=== PATIENT | male | born 1935 | race Caucasian/White ===

== ENCOUNTER → 2016-11-11 | Outpatient (REF) | payer MEDICARE, OTHER | LOC: M LAB REF 10:03 | PROVIDERS: ATTEND Nurse Practitioner Family | DX: R19.7 Diarrhea, unspecified (principal) ==

== ENCOUNTER 2017-02-16 11:53 | Outpatient (CLI) | payer MEDICARE, BC, OTHER ==
[~2017-02-16] VITALS: Ht 177.8 cm; Wt 104.3 kg
[~2017-02-16 11:53] MED LIST: ASPI325T24 PO; CLON-412 PO; FINA5TAB2 PO; FLOM5CAP PO; FURO20TA2 PO; GABA600T PO; HUMI40KI2 SC; LIPI20TA PO; LR 1,000 ML IV SCH; NORV5TAB PO; PROAAER10 INH; SYMB16INH INH
[2017-02-16] MEDS ORDERED: PROPOFOL 200 MG/20 ML VIAL As Ordered ONE ×3 (13:51→14:12)
[2017-02-16] MEDS ORDERED: LIDOCAINE 2% INJ 100 MG/5 ML SDV (FOR ANES.) As Ordered ONE (13:51)
[2017-02-16 14:44] VITALS: BP 202/94
--- NOTE | 2017-02-16 15:07 | ROOR ---
Patient Name: Robb Montes Procedure Date: 02/16/2017 1:15 PM Date of : 1935 Age: 82 Room: [facility] Gender: Male Note Status: Finalized Procedure: Colonoscopy Indications: Clinically significant diarrhea of unexplained origin, Change in bowel habits Providers: Gage Goodman MD Referring MD: CASSANDRA VALVERDE NP Requesting Provider: Medicines: Monitored Anesthesia Care Complications: No immediate complications. Procedure: Pre-Anesthesia Assessment: - Prior to the procedure, a History and Physical was performed, and patient medications and allergies were reviewed. The patient is competent. The risks and benefits of the procedure and the sedation options and risks were discussed with the patient. All questions were answered and informed consent was obtained. Patient identification and proposed procedure were verified by the physician, the nurse and the anesthesiologist in the procedure room. Mental Status Examination: alert and oriented. Airway Examination: normal oropharyngeal airway and neck mobility. CV Examination: regular rate and rhythm. Prophylactic Antibiotics: The patient does not require prophylactic antibiotics. Prior Anticoagulants: The patient has taken no previous anticoagulant or antiplatelet agents. ASA Grade Assessment: III - A patient with severe systemic disease. After reviewing the risks and benefits, the patient was deemed in satisfactory condition to undergo the procedure. The anesthesia plan was to use monitored anesthesia care (MAC). Immediately prior to administration of medications, the patient was re-assessed for adequacy to receive sedatives. The heart rate, respiratory rate, oxygen saturations, blood pressure, adequacy of pulmonary ventilation, and response to care were monitored throughout the procedure. The physical status of the patient was re-assessed after the procedure. The Colonoscope was introduced through the anus and advanced to the cecum, identified by appendiceal orifice and ileocecal valve. The colonoscopy was performed without difficulty. The patient tolerated the procedure well. The quality of the bowel preparation was good. Findings: Many large-mouthed diverticula were found in the sigmoid colon. A 35 mm polyp was found in the proximal ascending colon. The polyp was sessile. This was biopsied with a hot snare for histology. Two sessile polyps were found in the descending colon. The polyps were diminutive in size. The perianal exam findings include non-thrombosed external hemorrhoids. Impression: - Diverticulosis in the sigmoid colon. - One 35 mm polyp in the proximal ascending colon. Biopsied. - Two diminutive polyps in the descending colon. - Non-thrombosed external hemorrhoids found on perianal exam. Recommendation: - Discharge patient to home. - Resume previous diet. - Continue present medications. - Await pathology results. - Return to endoscopist in 1 day. Gage Goodman MD 02/16/2017 3:06:50 PM Number of Addenda: 0 Note Initiated On: 02/16/2017 1:15 PM Estimated Blood Loss: Estimated blood loss was minimal.
== END 2017-02-16 14:50 | disposition home or self-care (01) ==
LOC: M OPP 11:53
PROVIDERS: ATTEND Surgery
DX: K57.30 Diverticulosis of large intestine without perforation or abscess without bleeding (principal); D12.2 Benign neoplasm of ascending colon; D12.4 Benign neoplasm of descending colon; K64.4 Residual hemorrhoidal skin tags; I10 Essential (primary) hypertension; E78.00 Pure hypercholesterolemia, unspecified; N40.0 Benign prostatic hyperplasia without lower urinary tract symptoms; J44.9 Chronic obstructive pulmonary disease, unspecified; E11.9 Type 2 diabetes mellitus without complications; Z79.82 Long term (current) use of aspirin; Z79.899 Other long term (current) drug therapy; Z79.4 Long term (current) use of insulin; Z87.891 Personal history of nicotine dependence

== ENCOUNTER → 2017-03-25 | Outpatient (CLI) | payer MEDICARE, BC, OTHER ==
[~2017-03-25] MED LIST changes: -LR 1,000 ML IV SCH
--- NOTE | 2017-03-25 15:26 | REP ---
Clinical: Drug monitoring . Comparison: 01/26/2012 . Technique: PA and lateral. Findings: The mediastinum and cardiac silhouette are normal. The lung emery are clear and without acute consolidation, effusion, or pneumothorax. The skeletal structures are intact and normal. Impression: 1. No acute cardiopulmonary process. Signed by Cristóbal Olivia MD 03/25/2017 03:18 P
== END ==
LOC: M WUC 14:42
PROVIDERS: ATTEND Nurse Practitioner Family
DX: L40.0 Psoriasis vulgaris (principal); Z79.899 Other long term (current) drug therapy; Z51.81 Encounter for therapeutic drug level monitoring

== ENCOUNTER 2017-04-06 10:02 | Inpatient (IN) | payer MEDICARE, BC, OTHER ==
--- NOTE | 2017-04-01 19:36 | CR ---
DATE OF CONSULTATION: 04/06/[address] Goodman for a laparoscopic right hemicolectomy scheduled for 04/06/2017. Dear Dr. Goodman thank you for asking me to see Mr. Robb Montes in consultation prior to his right hemicolectomy. As you know, Mr. Montes is an 82-year-old gentleman with a past medical history of hypertension, renal insufficiency, hyperlipidemia, psoriasis and asthma, presenting for preop optimization. The patient reports he has had cough. He uses his Symbicort one inhaled twice a day. He has just started using his ProAir today. He denies any fevers or chills. He frequently has cough and phlegm production. This is not out of the ordinary for him. The patient has known psoriasis maintained on Humira. His shot is usually 2 weeks but he has not had a shot for 3 weeks as it is being held prior to his surgery. The patient has known benign prostatic hypertrophy (BPH) on finasteride and tamsulosin with good results. The patient has hypertension but denies any chest pain, palpitations, syncope or pre-syncope. He is compliant with his amlodipine. The patient has diarrhea. This is what prompted a colonoscopy which showed a polyp which is being resected. The patient has prediabetes. Denies prior polyphagia polydipsia. Review of systems otherwise negative. PAST MEDICAL HISTORY: 1. Hypertensive CRI 3. 2. Hyperlipidemia. 3. Psoriasis. 4. Asthma, cough predominant 5. BPH. 6. Osteoarthritis. 7. Remote mastoid surgery. 8. Remote hiatal hernia surgery. 9. OA DJD with sciatica. 10. Prediabetes. 11. 10/19 positive nuclear stress test followed by essentially normal cardiac catheterization. Echo 10/31/02 normal. MEDICATIONS: - amlodipine 5 mg daily - atorvastatin 20 mg daily - clonidine 0.1 mg 2 tablets in the morning - finasteride 5mg daily - furosemide 20 mg daily - gabapentin 600 mg three times a day - Humira injection every 2 weeks - ProAir 2 puffs four times a day as needed - Symbicort 1-2 puffs twice a day - tamsulosin 0.4 mg DRUG ALLERGIES: MAGGIE inhibitors which cause renal failure. 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 . No children. Former light smoker one pack a week for 15 years. Drinks two alcohol beverages per day. PHYSICAL EXAMINATION: VITALS: An overweight male in no acute distress. Weight is 232, blood pressure 128/60, heart rate is 54 with an occasional irregular beat, O2 sat 92%. HEENT: Head is normocephalic. Neck is supple. Pupils equal, reactive to light. He does wear eyeglasses. External auditory canals, tympanic membranes essentially normal some cerumen. Posterior pharynx without inflammation. Neck is supple. No thyromegaly, JVD, carotid bruits. RESPIRATORY: Breath sounds are coarse but no expiratory wheezes. He has a wet cough. C CARDIOVASCULAR: Occasional irregular beat, soft systolic murmur left upper sternal border. ABDOMEN: Protuberant. He has an umbilical hernia. He has a large ventral hernia. DERMATOLOGIC: Multiple moles, seborrheic keratoses. Some OA changes of the DIP joint. NEUROLOGIC: Alert and oriented. Reflexes symmetric. LABORATORY DATA: EKG shows sinus bradycardia rate of 49, left axis deviation at - 56 degrees consistent with left anterior fascicular block, QRS 122, QT 408. Rhythm strip shows an occasional PVC. Overall EKG is unchanged from previous EKGs and stress testing. 04/01/2017, the patient had essentially normal CBC. On 03/23/2017, he had a normal AST, normal lipid panel. Med profile shows a GFR 58. He had a normal liver panel 11/09/2016. His last A1c was 03/12/2016 and was 6. IMPRESSION: Mr. Robb Montes is an 82-year-old gentleman with cardiovascular risk factors positive for advanced age, hypertension, hyperlipidemia, obesity, hyperglycemia, has no signs or symptoms indicative of cardiovascular ischemia and is felt to be optimized and at low risk for cardiovascular complications from the proposed surgical intervention which can be further minimized by the following. RECOMMENDATIONS: 1. Hypertension, take Norvasc and clonidine morning of surgery. Hold furosemide. 2. Hyperlipidemia, aspirin is already on hold. Take atorvastatin as usual the evening prior to surgery. 3. Asthma predominantly cough predominant. Increase Symbicort to 2 puffs twice a day, ProAir 2 puffs four times a day until surgery. Encourage deep breathing. He has no signs of active infection. 4. BPH. Hold tamsulosin and finasteride morning of surgery. 5. OA DJD. Approved the Tylenol perioperatively. 6. CRI 3. Renal dose meds as indicated 7. Prediabetes. Dietary intervention discussed. I am going to update an A1c. 9. Psoriasis. His Humira will be on hold at least 2 weeks before and after surgical intervention. Thank you very much for this consultation. Please call with questions or concerns.
[~2017-04-06] VITALS: Ht 177.8 cm; Wt 104.5 kg
[2017-04-06] VITALS (7 sets, daily range): BP systolic 150–170; BP diastolic 66–77
--- NOTE | 2017-04-06 00:14 | HPE ---
DATE OF ADMISSION: 04/06/2017 ADMITTING DIAGNOSIS: Non-endoscopically resectable adenoma of the proximal ascending colon. HISTORY OF PRESENT ILLNESS: The patient is a pleasant 82-year-old man who had undergone colonoscopy for a history of diarrhea. His most recent prior colonoscopy had been in 2002. His current study was done on 02/16/2017. At his recent colonoscopy. he was found to have significant diverticulosis of the sigmoid colon. There was also a large flat polyp identified in the proximal ascending colon just past the ileocecal fold. Biopsies were obtained which revealed fragments of tubulovillous adenoma. It was clear that the lesion was not endoscopically resectable. The patient and I had discussed options for followup, and he is now admitted to undergo a laparoscopic right hemicolectomy to eliminate the polyp. ALLERGIES: The patient has no known drug allergies. CURRENT MEDICATIONS: - tamsulosin 0.4 mg by mouth daily - Symbicort 160/4.5 mcg two puffs twice daily - ProAir inhaler two puffs four times daily as needed - atorvastatin 20 mg by mouth daily - amlodipine 5 mg by mouth daily - clonidine hydrochloride 0.1 mg tablets two every morning - Lasix 20 mg by mouth daily - finasteride 5 mg by mouth daily - gabapentin 600 mg by mouth three times a day - Humira 40 mg subcutaneously every 2 weeks - He has also been given Flagyl and neomycin and Suprep to take as his preoperative preparation. Medical history is significant for hyperlipidemia and hypertension. He has benign prostatic hyperplasia. He has a history of psoriasis. He does have environmental allergies. He has obesity. Surgical history is significant for a foot procedure. He has had a previous hiatal hernia repair. He has undergone a left mastoid procedure. He has had wrist surgery. 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 FAMILY HISTORY: The patient's father succumbed to lung cancer. He has a brother who has hypertension and a sister with hypertension as well. SOCIAL HISTORY: The patient is a former smoker who quit in 1969. He does drink one or two alcoholic beverages per day. REVIEW OF SYSTEMS: Reveals no chest pain or palpitations. He denies any shortness of breath, cough or wheezing. He denies any rectal bleeding. He has had no dysuria or hematuria. He is not having any significant bone or joint problems. His psoriasis is currently under good control with his Humira. He denies any history of seizure or stroke. He has no history of deep vein thrombosis (DVT) or pulmonary embolus. PHYSICAL EXAMINATION: Reveals a pleasant older man. His height is 69 inches with a weight of 106 kg giving him a body mass index (BMI) of approximately 35. Skin: Warm and dry. Sclerae are anicteric. Mucous membranes are moist. Neck is supple without mass or bruit. Heart: Exam shows a regular rate and rhythm. The lungs are clear to auscultation bilaterally. The abdomen is somewhat obese, soft, and nontender. He has some small scars consistent with previous laparoscopic abdominal surgery. The extremities are without edema. Digital rectal exam at his recent colonoscopy was normal. IMPRESSION: 1. 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 Hyperlipidemia. 3. Hypertension. 4. Benign prostatic hyperplasia. 5. Psoriasis. 6. Environmental allergies. 7. Obesity. PLAN: The patient is being admitted to undergo a laparoscopic right hemicolectomy to eliminate the large polyp identified on his recent colonoscopy. Patient is to have performed a full mechanical and antibiotic bowel preparation on 04/05/2017 using Suprep, neomycin, and Flagyl. He will receive a dose of Invanz preoperatively. He will also be started on Entereg preoperatively. A Galvan catheter will be placed during the procedure. Thromboembolism deterrents (TEDs) and sequentials will be used intraoperatively for deep vein thrombosis (DVT) prophylaxis. The patient has been counseled regarding the plan for surgery. He had an opportunity to ask questions. He was counseled regarding the risks of the procedure, which include but are not limited to bleeding, infection , scarring, adverse drug reaction, need for further surgery, injury of internal organ, anastomotic leak, and hernia formation. He desires to proceed with the surgery and is being admitted as planned for the surgery on the morning of 04/06/2017. FREDY
[2017-04-06] MEDS ORDERED: ERTAPENEM SODIUM 1 GM in NS MINI-BAG PLUS 50 ML IV ONE (10:15)
[2017-04-06] MEDS ORDERED: LIDOCAINE 1% MDV 20ML VIAL SQ ONE (10:15)
[2017-04-06] MEDS ORDERED: LR 1,000 ML IV ONE (10:15)
[2017-04-06] MEDS ORDERED: ALVIMOPAN 12 MG CAPSULE (ENTEREG) PO ONE (10:15)
[2017-04-06 11:13] LABS: ANION GAP 8 MEQ/L (8-16); BLOOD UREA NITROGEN 19 MG/DL (7-18); CALCIUM LEVEL 8.6 MG/DL (8.8-10.2); CARBON DIOXIDE LEVEL 27 MEQ/L (21-32); CHLORIDE LEVEL 107 MEQ/L (98-107); CREATININE FOR GFR 1.21 MG/DL (0.70-1.30); GLOMERULAR FILTRATION RATE > 60.0 (>35); GLUCOSE, FASTING 96 MG/DL (83-110); POTASSIUM SERUM 4.1 MEQ/L (3.5-5.1); SODIUM LEVEL 142 MEQ/L (136-145)
[2017-04-06] MEDS ORDERED: fentaNYL 100 MCG/2 ML INJECTION (J3010) As Ordered ONE (11:50)
[2017-04-06] MEDS ORDERED: MIDAZOLAM INJ 2 MG/2 ML VIAL (J2250) As Ordered ONE (11:50)
[2017-04-06] MEDS ORDERED: BUPIVACAINE HCL 0.25% 30 ML VIAL As Ordered ONE (12:55)
[2017-04-06] MEDS ORDERED: PROPOFOL 200 MG/20 ML VIAL As Ordered ONE (13:45)
[2017-04-06] MEDS ORDERED: ePHEDrine SULFATE 25 MG/5 ML(5MG/ML) SYRINGE As Ordered ONE (13:45)
[2017-04-06] MEDS ORDERED: LIDOCAINE 2% INJ 100 MG/5 ML SDV (FOR ANES.) As Ordered ONE (13:45)
[2017-04-06] MEDS ORDERED: ROCURONIUM BROMIDE 50 MG/5 ML VIAL/SYRINGE As Ordered ONE ×2 (13:45→14:28)
[2017-04-06] MEDS ORDERED: NEOSTIGMINE 1MG/ML 5 ML SYRINGE (J2710) As Ordered ONE (13:45)
[2017-04-06] MEDS ORDERED: dexameTHASONE 4 MG/ML 1ML VIAL (J1100) As Ordered ONE (13:45)
[2017-04-06] MEDS ORDERED: GLYCOPYRROLATE INJ 0.2 MG/ML 2 ML VIAL As Ordered ONE (13:45)
[2017-04-06] MEDS ORDERED: KETOROLAC 60 MG/2 ML VIAL (J1885) As Ordered ONE (13:46)
[2017-04-06] MEDS ORDERED: ONDANSETRON 4MG/2ML VIAL (J2405) As Ordered ONE (13:46)
[2017-04-06] MEDS ORDERED: HYDROmorphone HCL 2 MG/ML 1ML VIAL (J1170) As Ordered ONE (13:51)
[2017-04-06] MEDS ORDERED: hydrALAZINE INJ 20 MG/ML VIAL As Ordered ONE (14:02)
[2017-04-06] MEDS ORDERED: ALBUTEROL 90 MCG/ACT 8GM HFA INHALER INH PRN (16:45)
[2017-04-06] MEDS ORDERED: ACETAMINOPHEN TAB 650MG DOSE (2X325MG) PO PRN (16:45)
[2017-04-06] MEDS ORDERED: MORPHINE 2 MG/ML 1ML SYRINGE IV PRN (16:45)
[2017-04-06] MEDS ORDERED: KETOROLAC 30 MG/ML VIAL (J1885) IV PRN (16:45)
[2017-04-06] MEDS ORDERED: METOCLOPRAMIDE INJ 10MG/2ML VIAL (J2765) IV PRN ×2 (16:45→17:00)
[2017-04-06] MEDS ORDERED: MEPERIDINE INJ 25 MG/ML VIAL (J2175) IV PRN (17:00)
[2017-04-06] MEDS ORDERED: ONDANSETRON 4MG/2ML VIAL (J2405) IV PRN (17:00)
[2017-04-06] MEDS ORDERED: PERCOCET 5MG/325MG TAB PO PRN (17:00)
[2017-04-06] MEDS ORDERED: fentaNYL 100 MCG/2 ML INJECTION (J3010) IV PRN (17:00)
[2017-04-06] MEDS ORDERED: LR 1,000 ML IV SCH (17:00)
[2017-04-06] MEDS: LR 1,000 ML IV SCH (20:01)
[2017-04-06] MEDS: ALVIMOPAN 12 MG CAPSULE (ENTEREG) PO SCH (20:26)
[2017-04-06] MEDS: ATORVASTATIN 20 MG TAB PO SCH (20:26)
[2017-04-06] MEDS: GABAPENTIN 300 MG CAP PO SCH (20:26)
[2017-04-06] MEDS: SYMBICORT 160/4.5MCG INHALER 6GM INH SCH (21:00)
[2017-04-06] MEDS: ENOXAPARIN 40 MG/0.4 ML SYRINGE (J1650) SC SCH (22:46)
[2017-04-07] VITALS (8 sets, daily range): BP systolic 138–169; BP diastolic 62–80
[2017-04-07] MEDS: NORCO, ANEXSIA 5/325MG TABLET (HYDROcodone/ACETAMINOPHEN) PO PRN ×2 (01:35→21:39)
[2017-04-07] MEDS: LR 1,000 ML IV SCH (02:39)
[2017-04-07 06:54] LABS: BASO % 0.1 % (0.0-1.0); EOS % 0.5 % (0.0-3.0); LARGE UNSTAINED CELL # 0.2 K/mm3 (0.0-0.4); LARGE UNSTAINED CELL % 1.8 % (0.0-4.0); LYMPH # 1.7 K/mm3 (1.5-4.5); LYMPH % 20.5 % (24.0-44.0); MEAN CORPUSCULAR HEMOGLOBIN 32.3 pg (27.0-33.0); MEAN CORPUSCULAR HGB CONC 34.5 g/dl (32.0-36.5); MEAN CORPUSCULAR VOLUME 93.5 fl (80.0-96.0); MONO # 0.8 K/mm3 (0.0-0.8); NEUTROPHILS # 5.4 K/mm3 (1.8-7.7); PLATELET COUNT, AUTOMATED 182 k/mm3 (150-450); RED CELL DISTRIBUTION WIDTH 12.2 % (11.5-14.5)
[2017-04-07 07:16] LABS: ANION GAP 5 MEQ/L (8-16); BLOOD UREA NITROGEN 23 MG/DL (7-18); CALCIUM LEVEL 7.9 MG/DL (8.8-10.2); CARBON DIOXIDE LEVEL 28 MEQ/L (21-32); CHLORIDE LEVEL 107 MEQ/L (98-107); CREATININE FOR GFR 1.09 MG/DL (0.70-1.30); GLOMERULAR FILTRATION RATE > 60.0 (>35); GLUCOSE, FASTING 135 MG/DL (83-110); POTASSIUM SERUM 3.8 MEQ/L (3.5-5.1); SODIUM LEVEL 140 MEQ/L (136-145)
--- NOTE | 2017-04-07 08:31 | IPN ---
DATE: 04/07/2017 The patient is now postop day #1 from a laparoscopic right hemicolectomy for a non endoscopically resectable proximal ascending colon polyp. He is sitting up in a chair this morning taking some clear liquids. He denies any nausea or vomiting. He has some pain at his midline incision with coughing and has taken to splinting appropriately. He has had no bowel movement or flatus yet. Vital signs this morning show a temperature of 98.4, pulse 65, respirations 18 and blood pressure of 139/65. He has a urine output of 250 mL recorded overnight. PHYSICAL EXAMINATION: The patient is alert, oriented and appears comfortable. Sclerae are anicteric. Skin is warm and dry. Heart: Exam shows a regular rate and rhythm. The lungs are clear. The abdomen is somewhat protuberant but soft. His bandages are dry and intact. Laboratory studies: He had a CBC this morning showing a white count of 8, hemoglobin 13, hematocrit of 38 with a differential showing 67% neutrophils, 20% lymphocytes and 10 monocytes. Chemistry profile shows normal electrolytes, BUN of 23 with a creatinine 1.09 and a glucose of 135. IMPRESSION: The patient is doing very well following his laparoscopic right hemicolectomy. He is tolerating clear liquids with no nausea or vomiting. PLAN: The patient will be advanced to a regular diet. His IV will be saline locked as he appears to have taken adequate oral intake. He has two IVs and I will ask that one of these be removed. He is encouraged to be up ambulating in the hallway and advised that he should anticipate that his first bowel movements will be perhaps somewhat unpredictable and loose and he should be prepared. Hopefully, he will be ready for discharge within the next 2 or 3 days. FREDY
[2017-04-07] MEDS: FINASTERIDE 5 MG TAB PO SCH (09:03)
[2017-04-07] MEDS: TAMSULOSIN 0.4 MG CAP PO SCH (09:03)
[2017-04-07] MEDS: GABAPENTIN 300 MG CAP PO SCH ×3 (09:04→21:33)
[2017-04-07] MEDS: ALVIMOPAN 12 MG CAPSULE (ENTEREG) PO SCH ×2 (09:04→21:33)
[2017-04-07] MEDS: amLODIPine 5 MG TAB PO SCH (09:04)
[2017-04-07] MEDS: cloNIDine 0.2 MG TAB PO SCH (09:05)
[2017-04-07] MEDS: FUROSEMIDE 20 MG TAB PO SCH (09:05)
[2017-04-07] MEDS: SYMBICORT 160/4.5MCG INHALER 6GM INH SCH ×2 (11:47→20:21)
[2017-04-07] MEDS: ATORVASTATIN 20 MG TAB PO SCH (21:33)
[2017-04-07] MEDS: ENOXAPARIN 40 MG/0.4 ML SYRINGE (J1650) SC SCH (22:52)
[2017-04-08] VITALS (7 sets, daily range): BP systolic 128–164; BP diastolic 60–76
[2017-04-08] MEDS: SYMBICORT 160/4.5MCG INHALER 6GM INH SCH ×2 (07:41→20:11)
--- NOTE | 2017-04-08 08:51 | RO ---
DATE OF PROCEDURE: 04/06/2017 PREOPERATIVE DIAGNOSIS: Non-endoscopically resectable right colon polyp. POSTOPERATIVE DIAGNOSIS: Non-endoscopically resectable right colon polyp (polyp of proximal ascending colon), umbilical hernia, adhesions. PROCEDURE PERFORMED: Laparoscopic right hemicolectomy with anastomosis, repair of umbilical hernia, and lysis of adhesions. SURGEON: Dr. Gage Goodman SONG AND DANCE PERFORMER: Dr. March ANESTHESIA: General. INDICATIONS FOR THE PROCEDURE: The patient is an 82-year-old man who recently underwent a colonoscopy because of a history of several months of diarrhea. He was found to have a large sessile polyp of the proximal ascending colon. Biopsies were obtained which revealed tubulovillous adenoma. He is now for a right hemicolectomy. OPERATIVE PROCEDURE: The patient was placed supine on the operating table. He was placed under general endotracheal anesthesia. A Galvan catheter was inserted. Thromboembolic deterrents (TEDS) and sequentials were utilized. The patient's abdomen was prepped and draped in a sterile fashion. 0.25% Marcaine was infiltrated above the umbilicus and a short midline incision was made just above the umbilicus. He was noted to have a small umbilical hernia. This was deepened through the fascia and the peritoneum was opened bluntly. A Banegas cannula was inserted and the abdomen was inflated with carbon dioxide gas. The laparoscope was placed. Initial examination showed a small grouping of adhesions of the omentum to the anterior abdominal wall just to the left of the falciform ligament. He did have a fairly lax abdominal wall particularly along the midline in the upper abdomen where he had an old scar from a prior hiatal hernia repair. The patient was tilted to a Trendelenburg position and rolled slightly to the left. The cecum was identified. A 5 mm trocar was placed low in the abdomen just to the right of the midline. A second 5 mm trocar was placed in the left lower quadrant. Graspers were inserted. The adhesions of the omentum in the left upper quadrant were lysed using the harmonic scalpel. The terminal ileum was identified. The cecum was grasped and retracted medially. The lateral attachments of the ascending colon were then divided using the harmonic scalpel extending from the area of the cecum all the way up along the ascending colon to the right upper quadrant. The greater omentum was elevated off of the transverse colon beginning at about the mid transverse colon and working to the right. In this manner, the transverse colon was better identified. The attachments of the hepatic flexure in the subhepatic space were divided and the hepatic flexure was mobilized inferiorly. I selected a point for division of the transverse colon near the midline. An opening was created through the transverse mesocolon and the colon was stapled with a load of the echelon stapler. The mesentery was divided down to its base. Likewise, the terminal ileum was freed from some attachments laterally and then, after creating an opening through the ileal mesentery, transected using a load of the echelon stapler. Again, the mesentery was divided down to its base. The ascending colon was mobilized further medially. The opening in the terminal ileal mesentery was then carried distally to divide the right colon mesentery near its base. The ileocolic artery was identified with the accompanying vein and these were divided using the harmonic scalpel without difficulty. The dissection continued distally along the ascending colon. The final attachments of the transverse colon in the right upper quadrant were divided, freeing the specimen entirely. Several additional attachments of the terminal ileum were divided to ensure that this would mobilize to the midline. Likewise, some additional attachments between the distal transverse colon and the overlying omentum were divided. The terminal ileum and the end of the transverse colon were then grasped with clamps and the specimen was grasped with a third grasper. In the course of dissection, a fourth grasper had been placed in the left upper quadrant. This was a 5 mm trocar. The abdomen was then deflated and the Banegas cannula was removed. This incision was extended inferiorly into a small umbilical hernia that was noted creating an incision approximately 5 cm in length. A Mobius retractor was inserted. The specimen was delivered through the wound and comprised an approximately 40 cm length of colon with attached mesentery. This was set aside for later inspection. The end of the terminal ileum and the transverse colon were then brought through the Mobius retractor. A stapled anastomosis was performed using a load of the echelon stapler to create a [id number] anastomosis with the residual opening closed with another firing of the echelon stapler. Inspection revealed an excellent anastomosis with no evidence of leak. The anastomosis was irrigated and then reduced into the abdomen. The Mobius retractor was removed. The surgical team all changed gown and gloves and then using the sterile closing tray proceeded. The peritoneum was closed in the midline incision with a running suture of #0 chromic. The fascia was then closed with interrupted simple sutures of #1 Vicryl. The abdomen was then reinflated. A 5 mm scope was inserted. The anastomosis was identified and there was no evidence of bleeding. A small amount of old blood in the right paracolic gutter area was irrigated and suctioned from the abdomen. The liver appeared normal. Other visualized loops of the small bowel appeared normal. The patient was returned to a flat position. The abdomen was deflated through the remaining three trocars and these were then removed. The skin incisions were all closed with buried Vicryl sutures and Steri-Strips. Light dressings were applied. The patient's Galvan catheter was removed. The specimen was opened longitudinally revealing an approximately 3.5cm flat polyp just distal to the ileocecal fold. He was awakened in the operating room, extubated and moved to the recovery room in stable condition. FREDY
[2017-04-08] MEDS: ALVIMOPAN 12 MG CAPSULE (ENTEREG) PO SCH ×2 (09:54→20:49)
[2017-04-08] MEDS: GABAPENTIN 300 MG CAP PO SCH ×3 (09:54→20:49)
[2017-04-08] MEDS: TAMSULOSIN 0.4 MG CAP PO SCH (09:55)
[2017-04-08] MEDS: FUROSEMIDE 20 MG TAB PO SCH (09:55)
[2017-04-08] MEDS: amLODIPine 5 MG TAB PO SCH (09:56)
[2017-04-08] MEDS: cloNIDine 0.2 MG TAB PO SCH (09:57)
[2017-04-08] MEDS: FINASTERIDE 5 MG TAB PO SCH (09:57)
--- NOTE | 2017-04-08 17:12 | IPN ---
DATE: 04/08/2017 The patient is now postoperative day 2 from his right hemicolectomy for a non-endoscopically resectable polyp. His pathology report shows tubulovillous adenoma with no high-grade dysplasia. There were two additional small tubular adenomas identified. The patient has been up in a chair and ambulatory. He is tolerating a regular diet and has begun having bowel function. Vital signs today show a temperature of 97.8, pulse of 62, respirations of 18, and a blood pressure of 128/60. Intake and output shows an intake of 1920 so far today with a urine output of almost 2900. He has had two bowel movements today. PHYSICAL EXAMINATION: The patient is alert, oriented, and cooperative. He is sitting comfortably in a chair. He is breathing easily. Heart exam shows a regular rate and rhythm. The lungs are clear. The abdomen is quite protuberant. He has some bruising around his trocar site in the left lower quadrant. His incisions are clean and dry. He has bowel sounds present. There are no laboratory studies or imaging studies obtained today. IMPRESSION: Excellent postoperative result to date with tolerance of regular diet and onset of bowel movements. PLAN: The patient will be discharged tomorrow if there are no problems between now and then. He can take a shower now, and we will remove his remaining saline lock. FREDY
[2017-04-08] MEDS: ATORVASTATIN 20 MG TAB PO SCH (20:49)
[2017-04-08] MEDS: ENOXAPARIN 40 MG/0.4 ML SYRINGE (J1650) SC SCH (23:44)
[2017-04-09 06:00] VITALS: BP 162/98
[2017-04-09] MEDS: TAMSULOSIN 0.4 MG CAP PO SCH (09:15)
[2017-04-09] MEDS: amLODIPine 5 MG TAB PO SCH (09:15)
[2017-04-09] MEDS: GABAPENTIN 300 MG CAP PO SCH (09:15)
[2017-04-09] MEDS: ALVIMOPAN 12 MG CAPSULE (ENTEREG) PO SCH (09:15)
[2017-04-09] MEDS: FINASTERIDE 5 MG TAB PO SCH (09:15)
[2017-04-09] MEDS: FUROSEMIDE 20 MG TAB PO SCH (09:16)
[2017-04-09] MEDS: cloNIDine 0.2 MG TAB PO SCH (09:16)
--- NOTE | 2017-04-09 09:53 | IPN ---
DATE: 04/08/2017 The patient is now three days postop from his laparoscopic right hemicolectomy for a large tubulovillous adenoma of the proximal ascending colon. His final pathology confirms a benign polyp with two additional small adenomas identified. He is doing well tolerating a diet and having bowel movements that are still loose. VITAL SIGNS: The patient has been afebrile for the last 24 hours. Vitals this morning show a temperature of 98.2, pulse 64, respirations 16, blood pressure 162/98 and his room air pulse oximetry is 95%. INTAKE AND OUTPUT: Yesterday was 2300 in and 3600 out. He has 2 bowel movements already recorded today. PHYSICAL EXAMINATION: The patient is up in a chair, dressed and appearing comfortable. Sclerae are anicteric. Heart exam shows a regular rhythm. The lungs are clear. His abdomen is protuberant, but soft and nontender with active bowel sounds. He has no laboratory studies. IMPRESSION: Doing well three days postop from his laparoscopic right hemicolectomy. PLAN: The patient will be discharged home. He has not used any pain medications in greater than 36 hours, so a pain med prescription will not be provided. He will continue his usual medications as before admission, though he will hold his Humira for two weeks after surgery. I advised him that there is a small risk of problems that could occur still in the next few days to a week and he is to contact the office for any fevers or chills, increasing abdominal pain or signs of a wound infection. He should followup with me routinely in 10-14 days. He can take a diet as tolerated and shower ad jero. FREDY
[2017-04-09 10:00] VITALS: BP 132/63
--- NOTE | 2017-04-09 12:47 | DSES ---
DATE OF ADMISSION: 04/06/2017 DATE OF DISCHARGE: 04/09/2017 ADMITTING DIAGNOSIS: Non endoscopically resectable proximal ascending colon polyp. HISTORY OF PRESENT ILLNESS: The patient is an 82-year-old man who had a recent colonoscopy that showed a roughly 3-4 cm polyp in his proximal ascending colon just distal to the ileocecal fold. This was flat and not amendable to an endoscopic resection. The patient is now admitted to undergo a right hemicolectomy. HOSPITAL COURSE: The patient was admitted on the morning of the after completing a full mechanical and antibiotic bowel preparation at home using SUPREP, neomycin, and Flagyl. He was taken to the operating room where he underwent an uncomplicated laparoscopic right hemicolectomy with repair of a small umbilical hernia and takedown of some adhesions. His postoperative course was unremarkable and he is now discharged on 04/09/2017. Final pathology confirmed a large tubulovillous adenoma with no dysplasia and there were also two additional small adenomas identified in the specimen. FINAL DIAGNOSES: 1. 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 Hyperlipidemia. 3. Hypertension. 4. Benign prostatic hyperplasia. 5. Psoriasis. 6. Environmental allergies. 7. Umbilical hernia. 8. Obesity. PROCEDURES PERFORMED: 1. Laparoscopic right hemicolectomy. 2. Umbilical herniorrhaphy. 3. Lysis of adhesions. DISPOSITION: The patient is discharged home on 04/09/2017. He is taking no analgesics so no pain medicine prescriptions will be provided. He will continue his usual pre-admission medications, though he will continue to hold his Humira for another 2 weeks before his next dose. He is taking a regular diet. His wounds are healing well and he can shower as desired. He can take a quick bath if desired as well. He was advised to avoid any lifting greater than 25-30 pounds or any strenuous activity. He should follow up with me in my office in 10-14 days. He was counseled to contact the office sooner if he noted fevers, chills or increasing abdominal pain. FREDY
== END 2017-04-09 11:24 | disposition home or self-care (01) | DRG 331 ==
LOC: M OR 10:02 → M MSPAV 17:22
PROVIDERS: ADMIT Surgery; ATTEND Surgery
PROC: 0DBK4ZZ Excision of Ascending Colon, Percutaneous Endoscopic Approach (ICD-10-PCS; principal; 2017-04-06 11:30)
DX: D12.2 Benign neoplasm of ascending colon (principal); I12.9 Hypertensive chronic kidney disease with stage 1 through stage 4 chronic kidney disease, or unspecified chronic kidney disease; E78.5 Hyperlipidemia, unspecified; J45.909 Unspecified asthma, uncomplicated; N18.3 Chronic kidney disease, stage 3 (moderate); N40.0 Benign prostatic hyperplasia without lower urinary tract symptoms; R73.03 Prediabetes; L40.9 Psoriasis, unspecified; Z79.899 Other long term (current) drug therapy; Z88.8 Allergy status to other drugs, medicaments and biological substances; Z87.891 Personal history of nicotine dependence

== ENCOUNTER → 2017-09-23 | Outpatient (REF) | payer MEDICARE, BC, OTHER ==
[2017-09-23 19:08] LABS: PHOSPHORUS LEVEL 3.6 MG/DL (2.5-4.9)
[2017-09-25 15:11] LABS: QUANTIFERON GOLD TB Negative (Negative); TB Test (QFT) Antigen 0.05 IU/mL (.); TB Test (QFT) Antigen Minus Ni <0.01 IU/mL (.); TB Test (QFT) Mitogen >10.00 IU/mL (.); TB Test (QFT) Nil 0.06 IU/mL (.)
== END ==
LOC: M LAB REF 17:15
DX: L40.0 Psoriasis vulgaris (principal); Z79.899 Other long term (current) drug therapy; Z51.81 Encounter for therapeutic drug level monitoring
CPT/HCPCS: 84100

== ENCOUNTER → 2017-11-04 | Outpatient (REF) | payer MEDICARE, BC, OTHER | LOC: M LAB REF 11:55 | DX: J02.9 Acute pharyngitis, unspecified (principal) | CPT/HCPCS: 87070 ==

== ENCOUNTER → 2017-11-16 | Outpatient (CLI) | payer MEDICARE, BC, OTHER | LOC: M WUC 11:01 | DX: L40.0 Psoriasis vulgaris (principal); Z51.81 Encounter for therapeutic drug level monitoring; Z79.899 Other long term (current) drug therapy | CPT/HCPCS: 71046 ==

== ENCOUNTER → 2018-03-28 | Outpatient (REF) | payer MEDICARE, BC, OTHER | LOC: M LAB REF 17:02 | DX: B37.0 Candidal stomatitis (principal) | CPT/HCPCS: 87070 ==

== ENCOUNTER → 2018-12-20 | Outpatient (CLI) | payer MEDICARE, BC, OTHER ==
[~2018-12-20] MED LIST changes: +ASPI-255 PO; -ASPI325T24 PO; +FLOM0.4C39 PO; -FLOM5CAP PO; -GABA600T PO; +GABA600T4 PO
--- NOTE | 2018-12-20 15:58 | REP ---
Chest two views HISTORY: Medication monitoring Comparison: 08/25/2018 Calcified granuloma are present in the upper lobes. The heart is normal in size. The pulmonary vasculature is normal in appearance. Degenerative change is present in the thoracic spine. IMPRESSION: No acute disease. Electronically Signed by Brock Felix MD 12/20/2018 03:49 P
== END ==
LOC: M LAB 13:12
PROVIDERS: ATTEND Nurse Practitioner Family
DX: R91.8 Other nonspecific abnormal finding of lung field (principal); M51.34 Other intervertebral disc degeneration, thoracic region; L40.0 Psoriasis vulgaris; Z51.81 Encounter for therapeutic drug level monitoring; Z79.899 Other long term (current) drug therapy

== ENCOUNTER 2019-01-17 09:10 | Day surgery (SDC) | payer MEDICARE, BC, OTHER ==
[~2019-01-17] VITALS: Ht 175.3 cm; Wt 83.5 kg
[~2019-01-17 09:10] MED LIST changes: +LISI-542 PO; +NS 1,000 ML IV ONE; +PROPOFOL 200 MG/20 ML VIAL As Ordered ONE; +TOPR50TA; +XARE20TA
[2019-01-17 12:04] VITALS: BP 129/89
--- NOTE | 2019-01-17 12:18 | ROOR ---
Patient Name: Robb Montes Procedure Date: 01/17/2019 10:47 AM Date of : 1935 Age: 84 Room: [facility] Gender: Male Note Status: Finalized Procedure: Colonoscopy Indications: Heme positive stool Providers: Gage Goodman MD Referring MD: Alexandra BOYLE MD Requesting Provider: Medicines: Monitored Anesthesia Care Complications: No immediate complications. Estimated blood loss: None. Procedure: Pre-Anesthesia Assessment: - Prior to the procedure, a History and Physical was performed, and patient medications and allergies were reviewed. The patient is competent. The risks and benefits of the procedure and the sedation options and risks were discussed with the patient. All questions were answered and informed consent was obtained. Patient identification and proposed procedure were verified by the physician, the nurse and the anesthesiologist in the procedure room. Mental Status Examination: alert and oriented. CV Examination: regular rate and rhythm. Prophylactic Antibiotics: The patient does not require prophylactic antibiotics. Prior Anticoagulants: The patient has taken no previous anticoagulant or antiplatelet agents. ASA Grade Assessment: II - A patient with mild systemic disease. After reviewing the risks and benefits, the patient was deemed in satisfactory condition to undergo the procedure. The anesthesia plan was to use monitored anesthesia care (MAC). Immediately prior to administration of medications, the patient was re-assessed for adequacy to receive sedatives. The heart rate, respiratory rate, oxygen saturations, blood pressure, adequacy of pulmonary ventilation, and response to care were monitored throughout the procedure. The physical status of the patient was re-assessed after the procedure. The Colonoscope was introduced through the anus and advanced to the ileocolonic anastomosis. The colonoscopy was performed without difficulty. The patient tolerated the procedure well. The quality of the bowel preparation was good. Findings: The perianal and digital rectal examinations were normal. Multiple medium-mouthed diverticula were found in the sigmoid colon. There was evidence of a prior functional end-to-end ileo-colonic anastomosis in the proximal transverse colon. This was patent and was characterized by healthy appearing mucosa. The anastomosis was not traversed. A 6 mm polyp was found in the transverse colon. The polyp was sessile. The polyp was removed with a hot snare. Resection and retrieval were complete. Two sessile polyps were found in the descending colon and transverse colon. The polyps were 3 to 4 mm in size. These were biopsied with a hot forceps for histology. Impression: - Diverticulosis in the sigmoid colon. - Patent functional end-to-end ileo-colonic anastomosis, characterized by healthy appearing mucosa. - One 6 mm polyp in the transverse colon, removed with a hot snare. Resected and retrieved. - Two 3 to 4 mm polyps in the descending colon and in the transverse colon. Biopsied. Recommendation: - Discharge patient to home. - Resume previous diet. - Continue present medications. - Await pathology results. Gage Goodman MD Gage Goodman MD 01/17/2019 12:17:45 PM Electronically signed by Gage Goodman MD Number of Addenda: 0 Note Initiated On: 01/17/2019 10:47 AM Estimated Blood Loss: Estimated blood loss: none.
== END 2019-01-17 12:05 | disposition home or self-care (01) ==
LOC: M OPP 09:10
PROVIDERS: ATTEND Surgery
DX: D12.3 Benign neoplasm of transverse colon (principal); D12.4 Benign neoplasm of descending colon; K57.30 Diverticulosis of large intestine without perforation or abscess without bleeding; R19.5 Other fecal abnormalities; Z98.0 Intestinal bypass and anastomosis status

== ENCOUNTER → 2019-03-24 | Outpatient (REF) | payer MEDICARE, BC, OTHER ==
[~2019-03-24] MED LIST changes: -NS 1,000 ML IV ONE; -PROPOFOL 200 MG/20 ML VIAL As Ordered ONE
== END ==
LOC: M LAB REF 12:53
PROVIDERS: ATTEND Internal Medicine
DX: L40.0 Psoriasis vulgaris (principal); Z79.899 Other long term (current) drug therapy; Z51.81 Encounter for therapeutic drug level monitoring

== ENCOUNTER → 2019-03-29 | Outpatient (REF) | payer MEDICARE, OTHER ==
[2019-03-29 18:07] LABS: BACTERIA, URINE AUTO NEGATIVE (NEGATIVE); CALCIUM OXALATE CRYSTALS SMALL; RBC, URINE AUTO TNTC /HPF (0-3); SQUAMOUS EPITHELIAL CELL UR AU 0 /HPF (0-6); WBC, URINE AUTO 2 /HPF (0-3)
== END ==
LOC: M LAB REF 17:23
PROVIDERS: ATTEND Internal Medicine
DX: R31.9 Hematuria, unspecified (principal)

== ENCOUNTER → 2019-04-12 | Outpatient (REF) | payer MEDICARE, OTHER ==
[~2019-04-12] MED LIST changes: -TOPR50TA; +TOPR50TA PO; -XARE20TA; +XARE20TA PO
[2019-04-12 19:25] LABS: APPEARANCE, URINE CLEAR (CLEAR); BACTERIA, URINE AUTO NEGATIVE (NEGATIVE); BILIRUBIN, URINE AUTO NEGATIVE (NEGATIVE); BLOOD, URINE BLOOD 2+ (NEGATIVE); COLOR, URINE STRAW (YELLOW); GLUCOSE, URINE (UA) AUTO NEGATIVE (NEGATIVE); KETONE, URINE AUTO NEGATIVE (NEGATIVE); LEUKOCYTE ESTERASE, URINE AUTO NEGATIVE (NEGATIVE); MUCUS, URINE SMALL (NEGATIVE); NITRITE, URINE AUTO NEGATIVE (NEGATIVE); PROTEIN, URINE AUTO NEGATIVE (NEGATIVE); RBC, URINE AUTO 29 /HPF (0-3); SQUAMOUS EPITHELIAL CELL UR AU 0 /HPF (0-6); UROBILINOGEN, URINE AUTO 0.2 mg/dL (0.0-2.0); WBC, URINE AUTO 2 /HPF (0-3)
== END ==
LOC: M SMT 18:57
PROVIDERS: ATTEND Nurse Practitioner Women's Health
DX: R31.29 Other microscopic hematuria (principal)
CPT/HCPCS: 81001; 87086; 88108; G0463

== ENCOUNTER 2019-04-20 11:45 | Day surgery (SDC) | payer MEDICARE, BC, OTHER ==
[~2019-04-20] VITALS: Ht 175.3 cm; Wt 86.1 kg
[~2019-04-20 11:45] MED LIST changes: +BALANCED SALT IRRIGATION SOLUTION 500ML BAG (FOR OR EYE MACHINE) As Ordered ONE; +DUOVISC (0.50ML VISCOAT/0.55ML PROVISC) OPHTH KIT As Ordered ONE; +LIDOCAINE 0.75%/EPINEPHRINE 0.025% IN BSS 0.8ML SYR INTRACAMERAL--OR ONLY As Ordered ONE; +MIDAZOLAM INJ 2 MG/2 ML VIAL (J2250) As Ordered ONE; +OFLOXACIN 0.3 % (OCUFLOX) OPTH SOL 5ML OD ONE; +PHENYLEPHRINE 2.5% OPHTH SOL 2ML OD ONE; +POVIDONE-IODINE 5% OPHTH PREP SOL 30ML As Ordered ONE; +PROPARACAINE 0.5% OPHTH SOL 15ML OD ONE; +TROPICAMIDE 1% OPHTH SOLN 2ML OD ONE; +fentaNYL 100 MCG/2 ML INJECTION (J3010) As Ordered ONE
[2019-04-20] MEDS ORDERED: FISH1000 PO (12:40)
[2019-04-20] MEDS ORDERED: CEFUROXIME 1MG/0.1ML INTRACAMERAL INJ As Ordered ONE (13:42)
[2019-04-20 14:45] VITALS: BP 113/72
--- NOTE | 2019-04-25 17:59 | RO ---
DATE OF PROCEDURE: 04/20/2019 PREOPERATIVE DIAGNOSIS: 1. Visually significant nuclear sclerotic cataract right eye. POSTOPERATIVE DIAGNOSIS: 1. Visually significant nuclear sclerotic cataract right eye. PROCEDURE: 1. Cataract extraction with use of phacoemulsification and placement of intraocular lens, AU00T0, 21.5 D, right eye. SURGEON: Forest Hernandez DO BULLDOZER/LOADER/COMPACTOR/SCRAPER: None. ANESTHESIA: Local with monitored anesthesia care (MAC). COMPLICATIONS: None. POSTOPERATIVE CONDITION: Stable. INDICATIONS FOR SURGERY: 1. Blurred vision affecting patients activities of daily living. DESCRIPTION OF PROCEDURE: The patient was seen in the preoperative area and properly identified. The correct operative eye was identified and marked. The patient received topical anesthetic, antibiotics, and topical dilating drops. The patient was then transferred to the operating room. The correct side was re-identified, and a time-out was performed. The eye was prepped and draped in a sterile fashion. The eyelids were isolated with Tegaderm tape, and the lids were held open with an adjustable speculum. A 1.0 mm paracentesis incision was made. Intraocular preservative-free Shugarcaine was then injected into the anterior chamber. Viscoelastic was then injected into the anterior chamber through the paracentesis. Using a 2.4 mm sharp-tipped keratome, the anterior chamber was entered via a temporal clear cornea incision. A continuous curvilinear capsulorrhexis was created with Utrata forceps. Hydrodissection was performed with balanced salt solution (BSS) on a blunt cannula until the nucleus was able to rotate freely. The crystalline lens was phacoemulsified and aspirated. Irrigation/aspiration was used to remove the cortical material. Cohesive viscoelastic was placed into the capsular bag to deepen it. The implant was placed into the capsular bag and allowed to unfold. Placement was confirmed by visualizing the anterior capsulorrhexis. Irrigation/aspiration was used to remove the viscoelastic. The clear corneal incision was hydrated with BSS on a blunt cannula. The lens was well positioned. The incisions were then tested for leaks and found to be negative. The eye was then palpated for appropriate pressure and adjusted accordingly with BSS. The eyelid speculum was then carefully removed. A shield was placed over the eye. The patient tolerated the procedure well and was discharged to the recovery unit in a stable condition.
== END 2019-04-20 14:55 | disposition home or self-care (01) ==
LOC: M SDC 11:45
PROVIDERS: ATTEND Ophthalmology
DX: H25.11 Age-related nuclear cataract, right eye (principal); I48.91 Unspecified atrial fibrillation; E78.5 Hyperlipidemia, unspecified; I10 Essential (primary) hypertension; K44.9 Diaphragmatic hernia without obstruction or gangrene; N40.0 Benign prostatic hyperplasia without lower urinary tract symptoms; Z79.02 Long term (current) use of antithrombotics/antiplatelets; Z79.899 Other long term (current) drug therapy
CPT/HCPCS: 66984; J2250; J3010; V2632

== ENCOUNTER 2019-05-04 07:35 | Day surgery (SDC) | payer MEDICARE, BC, OTHER ==
[~2019-05-04] VITALS: Ht 175.3 cm; Wt 83.0 kg
[~2019-05-04 07:35] MED LIST changes: +CEFUROXIME 1MG/0.1ML INTRACAMERAL INJ As Ordered ONE; +FISH1000 PO; -LIDOCAINE 0.75%/EPINEPHRINE 0.025% IN BSS 0.8ML SYR INTRACAMERAL--OR ONLY As Ordered ONE; -MIDAZOLAM INJ 2 MG/2 ML VIAL (J2250) As Ordered ONE; -OFLOXACIN 0.3 % (OCUFLOX) OPTH SOL 5ML OD ONE; +OFLOXACIN 0.3 % (OCUFLOX) OPTH SOL 5ML OS ONE; -PHENYLEPHRINE 2.5% OPHTH SOL 2ML OD ONE; +PHENYLEPHRINE 2.5% OPHTH SOL 2ML OS ONE; -PROPARACAINE 0.5% OPHTH SOL 15ML OD ONE; +PROPARACAINE 0.5% OPHTH SOL 15ML OS ONE; -TROPICAMIDE 1% OPHTH SOLN 2ML OD ONE; +TROPICAMIDE 1% OPHTH SOLN 2ML OS ONE; -fentaNYL 100 MCG/2 ML INJECTION (J3010) As Ordered ONE
[2019-05-04] MEDS ORDERED: fentaNYL 100 MCG/2 ML INJECTION (J3010) As Ordered ONE (08:28)
[2019-05-04] MEDS ORDERED: MIDAZOLAM INJ 2 MG/2 ML VIAL (J2250) As Ordered ONE (08:28)
[2019-05-04 10:40] VITALS: BP 102/65
--- NOTE | 2019-05-05 13:54 | RO ---
DATE OF PROCEDURE: 05/04/2019 PREOPERATIVE DIAGNOSIS: 1. Visually significant nuclear sclerotic cataract left eye. POSTOPERATIVE DIAGNOSIS: 1. Visually significant nuclear sclerotic cataract left eye. PROCEDURE: 1. Cataract extraction with use of phacoemulsification and placement of intraocular lens, 22.0 D, left eye. SURGEON: Forest Hernandez DO MERCHANDISING INTERN: None. ANESTHESIA: Local with monitored anesthesia care (MAC). COMPLICATIONS: None. POSTOPERATIVE CONDITION: Stable. INDICATIONS FOR SURGERY: 1. Blurred vision affecting patients activities of daily living. DESCRIPTION OF PROCEDURE: The patient was seen in the preoperative area and properly identified. The correct operative eye was identified and marked. The patient received topical anesthetic, antibiotics, and topical dilating drops. The patient was then transferred to the operating room. The correct side was re-identified, and a time-out was performed. The eye was prepped and draped in a sterile fashion. The eyelids were isolated with Tegaderm tape, and the lids were held open with an adjustable speculum. A 1.0 mm paracentesis incision was made. Intraocular preservative-free Shugarcaine was then injected into the anterior chamber. Viscoelastic was then injected into the anterior chamber through the paracentesis. Using a 2.4 mm sharp-tipped keratome, the anterior chamber was entered via a temporal clear cornea incision. A continuous curvilinear capsulorrhexis was created with Utrata forceps. Hydrodissection was performed with balanced salt solution (BSS) on a blunt cannula until the nucleus was able to rotate freely. The crystalline lens was phacoemulsified and aspirated. Irrigation/aspiration was used to remove the cortical material. Cohesive viscoelastic was placed into the capsular bag to deepen it. The implant was placed into the capsular bag and allowed to unfold. Placement was confirmed by visualizing the anterior capsulorrhexis. Irrigation/aspiration was used to remove the viscoelastic. The clear corneal incision was hydrated with BSS on a blunt cannula. The lens was well positioned. The incisions were then tested for leaks and found to be negative. The eye was then palpated for appropriate pressure and adjusted accordingly with BSS. The eyelid speculum was then carefully removed. A shield was placed over the eye. The patient tolerated the procedure well and was discharged to the recovery unit in a stable condition. FREDY
== END 2019-05-04 10:55 | disposition home or self-care (01) ==
LOC: M SDC 07:35
PROVIDERS: ATTEND Ophthalmology
DX: H25.12 Age-related nuclear cataract, left eye (principal); I48.91 Unspecified atrial fibrillation; I10 Essential (primary) hypertension; E78.5 Hyperlipidemia, unspecified; K44.9 Diaphragmatic hernia without obstruction or gangrene; N40.0 Benign prostatic hyperplasia without lower urinary tract symptoms; Z79.01 Long term (current) use of anticoagulants; Z79.899 Other long term (current) drug therapy
CPT/HCPCS: 66984; J2250; J3010; V2632

== ENCOUNTER → 2020-04-18 | Outpatient (REF) | payer MEDICARE, BC, OTHER ==
[~2020-04-18] MED LIST changes: -BALANCED SALT IRRIGATION SOLUTION 500ML BAG (FOR OR EYE MACHINE) As Ordered ONE; -CEFUROXIME 1MG/0.1ML INTRACAMERAL INJ As Ordered ONE; -DUOVISC (0.50ML VISCOAT/0.55ML PROVISC) OPHTH KIT As Ordered ONE; -OFLOXACIN 0.3 % (OCUFLOX) OPTH SOL 5ML OS ONE; -PHENYLEPHRINE 2.5% OPHTH SOL 2ML OS ONE; -POVIDONE-IODINE 5% OPHTH PREP SOL 30ML As Ordered ONE; -PROPARACAINE 0.5% OPHTH SOL 15ML OS ONE; -TROPICAMIDE 1% OPHTH SOLN 2ML OS ONE
[2020-04-18 13:25] LABS: PHOSPHORUS LEVEL 3.3 MG/DL (2.5-4.9); URIC ACID 4.9 MG/DL (3.5-7.2)
== END ==
LOC: M LAB REF 12:27
PROVIDERS: ATTEND Internal Medicine
DX: N18.30 Chronic kidney disease, stage 3 unspecified (principal); L40.0 Psoriasis vulgaris; Z79.899 Other long term (current) drug therapy; Z51.81 Encounter for therapeutic drug level monitoring

== ENCOUNTER → 2021-02-25 | Outpatient (CLI) | payer MEDICARE ==
[~2021-02-25] MED LIST changes: -LISI-542 PO; +LISI-898 PO
--- NOTE | 2021-02-25 15:33 | REP ---
INDICATION: FLANK PAIN. COMPARISON: None TECHNIQUE: AP and lateral FINDINGS: Chronic changes are identified with marginal osteophyte formation seen bilaterally at every level along with disc space narrowing at every level. There is anterior lipping seen at every level. Vertebral body height and alignment is within normal limits. The pedicles are intact bilaterally. IMPRESSION: Rather advanced appearing chronic changes. <Electronically signed by Reji Barrett > 02/25/21 [id number]
== END ==
LOC: M PLAIMG 13:25
PROVIDERS: ATTEND Internal Medicine
DX: R10.9 Unspecified abdominal pain (principal); M25.78 Osteophyte, vertebrae; M48.00 Spinal stenosis, site unspecified

== ENCOUNTER → 2021-03-12 | Outpatient (CLI) | payer MEDICARE ==
--- NOTE | 2021-03-12 16:24 | REP ---
INDICATION: F/U LT RENAL CYST. COMPARISON: 05/21/2006 TECHNIQUE: Real-time sonographic evaluation of the kidneys FINDINGS: Multiple ultrasonographic images of the right kidney show the right kidney to measure 12.7 x 6.8 x 5.9 cm.. The renal cortical echotexture is unremarkable. There are no solid masses. There are multiple renal cysts. These have increased in size from the prior exam with the largest measuring 7 x 4.7 x 7.3 cm. There is good corticomedullary differentiation. There is no hydronephrosis. There are no perinephric fluid collections. Multiple ultrasonographic images of the left kidney show the left kidney to measure 13 x 4.7 x 4.9 cm.. The renal cortical echotexture is unremarkable. There are no solid masses. There are multiple renal cysts. These have increased in size somewhat compared to the prior exam. The largest is in the inferior pole measuring 6.1 x 4.7 x 6.1 cm. There is good corticomedullary differentiation. There is no hydronephrosis. There are no perinephric fluid collections. IMPRESSION: Bilateral renal cysts <Electronically signed by Reji Barrett > 03/12/21 [id number]
== END ==
LOC: M RAD 15:40
PROVIDERS: ATTEND Internal Medicine
DX: N28.1 Cyst of kidney, acquired (principal)

== ENCOUNTER → 2021-04-09 | Outpatient (CLI) | payer MEDICARE, OTHER ==
[2021-04-09 15:27] LABS: BASO # 0.1 10^3/uL (0.0-0.2); BASO % 0.7 % (0.0-1.0); EOS # 0.4 10^3/uL (0.0-0.5); EOS % 5.1 % (0.0-3.0); HEMATOCRIT 39.7 % (42.0-52.0); HEMOGLOBIN 13.1 g/dl (13.5-17.5); LYMPH # 3.1 10^3/uL (1.5-5.0); LYMPH % 37.9 % (24.0-44.0); MEAN CORPUSCULAR HEMOGLOBIN 31.8 pg (27.0-33.0); MEAN CORPUSCULAR VOLUME 96.4 fl (80.0-96.0); MONO % 11.6 % (2.0-8.0); NEUTROPHILS # 3.6 10^3/uL (1.5-8.5); NEUTROPHILS % 44.6 % (36.0-66.0); PLATELET COUNT, AUTOMATED 186 10^3/uL (150-450); RED BLOOD COUNT 4.12 10^6/uL (4.30-6.10); WHITE BLOOD COUNT 8.2 10^3/uL (4.0-10.0)
[2021-04-09 15:43] LABS: ALBUMIN 3.4 GM/DL (3.2-5.2); ALT/SGPT 29 U/L (12-78); BILIRUBIN,DIRECT 0.2 MG/DL (0.0-0.2); BILIRUBIN,TOTAL 0.7 MG/DL (0.2-1.0); BLOOD UREA NITROGEN 26 MG/DL (7-18); CALCIUM LEVEL 8.9 MG/DL (8.8-10.2); CARBON DIOXIDE LEVEL 29 MEQ/L (21-32); CHLORIDE LEVEL 108 MEQ/L (98-107); CREATININE FOR GFR 1.29 MG/DL (0.70-1.30); GLUCOSE, FASTING 94 MG/DL (70-100); PHOSPHORUS LEVEL 3.6 MG/DL (2.5-4.9); POTASSIUM SERUM 4.8 MEQ/L (3.5-5.1); SODIUM LEVEL 140 MEQ/L (136-145)
[2021-04-09 15:52] LABS: HEPATITIS B SURFACE ANTIBODY NEGATIVE (POSITIVE)
--- NOTE | 2021-04-09 15:52 | REP ---
INDICATION: PSORIASIS VULGARIS. COMPARISON: PA and lateral chest, 12/20/2018. TECHNIQUE: Upright PA and lateral chest images were obtained. FINDINGS: There is stable benign calcified granulomas in both lungs. The lungs are otherwise clear. There is no lobar consolidation or pleural effusion. There is cardiomegaly and aortic ectasia consistent with benign essential hypertension. There is calcific vascular disease of the thoracic aorta. IMPRESSION: 1. Findings consistent with hypertension. 2. No evidence of acute cardiopulmonary pathology. <Electronically signed by Enzo Franks > 04/09/21 [id number]
[2021-04-09 16:32] LABS: HIV 1&2 SCREEN CENTAUR NEGATIVE (NEGATIVE)
== END ==
LOC: M LAB 14:36
PROVIDERS: ATTEND Nurse Practitioner Family
DX: L40.0 Psoriasis vulgaris (principal); R91.8 Other nonspecific abnormal finding of lung field

== ENCOUNTER → 2022-01-13 | Outpatient (REF) | payer MEDICARE, OTHER ==
[~2022-01-13] MED LIST changes: -LISI-898 PO; +LISI5TAB11 PO
== END ==
LOC: M LAB REF 16:37
PROVIDERS: ATTEND Internal Medicine
DX: R63.4 Abnormal weight loss (principal); Z86.010 Personal history of colon polyps

== ENCOUNTER → 2022-02-17 | Outpatient (CLI) | payer MEDICARE, OTHER | LOC: M WUC 09:28 | PROVIDERS: ATTEND Internal Medicine | DX: M48.04 Spinal stenosis, thoracic region (principal); M25.78 Osteophyte, vertebrae ==

== ENCOUNTER → 2022-04-02 | Outpatient (CLI) | payer MEDICARE, OTHER ==
[~2022-04-02] MED LIST changes: +CALCCAP4 PO; +GABA-282 PO
== END ==
LOC: M LABSMTC 09:28
PROVIDERS: ATTEND Anesthesiology
DX: Z01.818 Encounter for other preprocedural examination (principal); Z11.52 Encounter for screening for COVID-19

== ENCOUNTER 2022-04-07 11:25 | Day surgery (SDC) | payer MEDICARE ==
[~2022-04-07] VITALS: Ht 175.3 cm; Wt 76.4 kg
[~2022-04-07 11:25] MED LIST changes: +NS 1,000 ML IV ONE
[2022-04-07] MEDS ORDERED: propofoL 200 MG/20 ML VIAL As Ordered ONE (12:19)
[2022-04-07] MEDS ORDERED: LIDOCAINE 2% 100MG/5ML SDV (FOR ANES.) As Ordered ONE (12:19)
[2022-04-07 14:03] VITALS: BP 107/63
== END 2022-04-07 14:04 | disposition home or self-care (01) ==
LOC: M OPP 11:25
PROVIDERS: ATTEND Surgery
DX: Z86.010 Personal history of colon polyps (principal); D12.4 Benign neoplasm of descending colon; K57.30 Diverticulosis of large intestine without perforation or abscess without bleeding; Z98.0 Intestinal bypass and anastomosis status; Z90.49 Acquired absence of other specified parts of digestive tract; Z85.038 Personal history of other malignant neoplasm of large intestine; Z79.01 Long term (current) use of anticoagulants; Z79.02 Long term (current) use of antithrombotics/antiplatelets; Z79.51 Long term (current) use of inhaled steroids; Z79.891 Long term (current) use of opiate analgesic; Z79.899 Other long term (current) drug therapy; Z87.891 Personal history of nicotine dependence; E78.5 Hyperlipidemia, unspecified; N40.0 Benign prostatic hyperplasia without lower urinary tract symptoms

== ENCOUNTER → 2022-04-24 | Outpatient (CLI) | payer MEDICARE ==
[~2022-04-24] MED LIST changes: -NS 1,000 ML IV ONE
== END ==
LOC: M WUC 10:24
PROVIDERS: ATTEND Nurse Practitioner Family
DX: L40.0 Psoriasis vulgaris (principal); Z51.81 Encounter for therapeutic drug level monitoring; Z79.899 Other long term (current) drug therapy

== ENCOUNTER → 2022-06-09 | Outpatient (REF) | payer MEDICARE ==
[2022-06-09 17:39] LABS: BASO # 0.1 10^3/uL (0.0-0.2); BASO % 0.9 % (0.0-1.0); EOS # 0.3 10^3/uL (0.0-0.5); EOS % 4.9 % (0.0-3.0); HEMATOCRIT 40.3 % (42.0-52.0); HEMOGLOBIN 12.5 g/dl (13.5-17.5); LYMPH # 2.9 10^3/uL (1.5-5.0); LYMPH % 43.4 % (24.0-44.0); MEAN CORPUSCULAR HEMOGLOBIN 30.2 pg (27.0-33.0); MEAN CORPUSCULAR VOLUME 97.3 fl (80.0-96.0); MONO # 0.9 10^3/uL (0.0-0.8); MONO % 13.4 % (2.0-8.0); NEUTROPHILS # 2.5 10^3/uL (1.5-8.5); NEUTROPHILS % 37.1 % (36.0-66.0); PLATELET COUNT, AUTOMATED 199 10^3/uL (150-450); RED BLOOD COUNT 4.14 10^6/uL (4.30-6.10); WHITE BLOOD COUNT 6.8 10^3/uL (4.0-10.0)
[2022-06-09 19:37] LABS: ALBUMIN 3.6 G/DL (3.2-5.2); ALT/SGPT 21 U/L (7.0-40); BILIRUBIN,DIRECT 0.4 MG/DL (<0.4); BILIRUBIN,TOTAL 1.1 MG/DL (0.3-1.2); BLOOD UREA NITROGEN 29 MG/DL (9-23); CALCIUM LEVEL 8.9 MG/DL (8.3-10.6); CARBON DIOXIDE LEVEL 27 MMOL/L (20-31); CHLORIDE LEVEL 102 MMOL/L (98-107); CHOLESTEROL LEVEL 132 MG/DL (<200); CHOLESTEROL RISK RATIO 2.68 (<5); CREATININE FOR GFR 1.17 MG/DL (0.70-1.30); GLOMERULAR FILTRATION RATE > 60.0 (>35); GLUCOSE, FASTING 92 MG/DL (74-106); HDL CHOLESTEROL 49.2 MG/DL (>40); HEPATITIS C VIRUS ABY INDEX 0.1 INDEX (<0.8); HIV 1&2 SCREEN CENTAUR NEGATIVE (NEGATIVE); LDL CHOLESTEROL 65.6 MG/DL (<100); NON-HDL-C 83 MG/DL; PHOSPHORUS LEVEL 4.1 MG/DL (2.4-5.1); POTASSIUM SERUM 4.6 MMOL/L (3.5-5.1); SODIUM LEVEL 138 MMOL/L (136-145); TRIGLYCERIDES LEVEL 86 MG/DL (<150)
== END ==
LOC: M WUC 10:55
PROVIDERS: ATTEND Nurse Practitioner Family
DX: L40.0 Psoriasis vulgaris (principal)